=== PATIENT | female | born 2000 | race Caucasian/White ===

== ENCOUNTER 2022-08-08 03:09 | Emergency (ER) | payer BC ==
[~2022-08-08] VITALS: Ht 154.9 cm; Wt 84.1 kg
[2022-08-08] MEDS ORDERED: ketorolac trometh inj. 60 MG/2 ML VIAL IM ONE (06:30)
[2022-08-08 07:22] VITALS: BP 120/79
== END 2022-08-08 07:24 | disposition home or self-care (01) ==
LOC: ER 03:11
DX: S39.012A Strain of muscle, fascia and tendon of lower back, initial encounter (principal); F15.10 Other stimulant abuse, uncomplicated; Z79.899 Other long term (current) drug therapy; X58.XXXA Exposure to other specified factors, initial encounter; Y93.89 Activity, other specified; Y92.89 Other specified places as the place of occurrence of the external cause; Y99.8 Other external cause status
CPT/HCPCS: 96372; 99283; J1885

== ENCOUNTER 2023-03-01 04:30 | Emergency (ER) | payer MEDICAID ==
[~2023-03-01] VITALS: Ht 154.9 cm; Wt 81.8 kg
[2023-03-01 04:50] VITALS: BP 135/89
== END 2023-03-01 10:41 | disposition left against medical advice (07) ==
LOC: ER 04:30
DX: R21 Rash and other nonspecific skin eruption (principal); M79.606 Pain in leg, unspecified; Z53.21 Procedure and treatment not carried out due to patient leaving prior to being seen by health care provider
CPT/HCPCS: 99281